=== PATIENT | male | born 1960 | race Two or more races ===

== ENCOUNTER 2016-09-04 12:15 | Emergency (ER) | payer OTHER ==
--- NOTE | 2016-09-04 12:54 | EKG ---
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
--- NOTE | 2016-09-04 13:21 | PHYS DOC ---
Past Medical History Past Medical History: Other Additional Past Medical Histor: BACK PAIN,STOMACH PROBLEM Past Surgical History: Appendectomy Additional Information: 0.5 PPD Alcohol Use: Occasionally Additional Information: DRINKS EVERY 15 DAYS, WHEN NOT TAKING MEDICATION Drug Use: None Adult General Chief Complaint Chief Complaint: CHEST PAIN HPI HPI Patient is a 56 year old male who presents with complaint of chest pain and neck pain. Patient states that he suffered a fall proximate 5 days ago at his home. Patient states that he was trying to take out trash when he slipped on a box that was on the ground. This caused him to fall into a metal machine at his home, bruising the front portion of his chest. Patient states that since his injury he has had worsening pain. Patient rates his pain currently as 8 out of 10. The patient states that he took naproxen at home with no relief of symptoms. Patient states that the pain worsens when he takes a deep breath and when he coughs. Patient states that the pain is in the center of his chest but does partially radiate towards the left side of his chest. Patient denies any shortness of breath or lightheadedness. Patient also notes that he has had worsening neck pain since his fall which she states is across both sides in the middle of his neck. Pain worsens when he tries to turn his head or extend his chin upward. Review of Systems Review of Systems Constitutional: Denies fever or chills [] Eyes: Denies change in visual acuity, redness, or eye pain [] HENT: Denies nasal congestion or sore throat [] Respiratory: Denies cough or shortness of breath [] Cardiovascular: Chest pain [] GI: Denies abdominal pain, nausea, vomiting, bloody stools or diarrhea [] : Denies dysuria or hematuria [] Musculoskeletal: Neck pain [] Integument: Denies rash or skin lesions [] Neurologic: Denies headache, focal weakness or sensory changes [] Current Medications Current Medications Current Medications Medications (Trade) Dose Ordered Sig/Kaye Start Time Stop Time Status Last Admin Dose Admin Dexamethasone Sodium Phosphate (Decadron) 12 mg 1X ONCE 09/04/16 13:30 09/04/16 13:31 DC 09/04/16 13:08 12 MG Morphine Sulfate 4 mg 1X ONCE 09/04/16 13:30 09/04/16 13:31 DC 09/04/16 13:10 4 MG Ondansetron HCl (Zofran) 4 mg 1X ONCE 09/04/16 13:30 09/04/16 13:31 DC 09/04/16 13:07 4 MG Allergies Allergies Allergies Coded Allergies Type Severity Reaction Last Updated Verified naproxen Allergy Intermediate RASH,ITCH 09/04/16 Yes Physical Exam Physical Exam Constitutional: Alert, afebrile, appears in mild to moderate discomfort. [] HENT: Normocephalic, atraumatic, bilateral external ears normal, oropharynx moist, no oral exudates, nose normal. [] Eyes: PERRLA, EOMI, conjunctiva normal, no discharge. [] Neck: Bilateral paraspinous muscle tenderness to palpation, no midline tenderness, pain with extension, supple, no stridor. [] Cardiovascular:Heart rate regular rhythm, no murmur [] Lungs & Thorax: Bilateral breath sounds clear to auscultation, mid sternal tenderness to palpation causing reproducible pain [] Abdomen: Bowel sounds normal, soft, no tenderness, no masses, no pulsatile masses. [] Skin: Warm, dry, no erythema, no rash. [] Back: No tenderness, no CVA tenderness. [] Extremities: No tenderness, no cyanosis, no clubbing, ROM intact, no edema. [] Neurologic: Alert and oriented X 3, normal motor function, normal sensory function, no focal deficits noted. [] Current Patient Data Vital Signs Vital Signs Date Time Temp Pulse Resp B/P Pulse Ox O2 Delivery O2 Flow Rate FiO2 09/04/16 13:10 18 99 Room Air 09/04/16 12:19 97.6 54 137/67 97.6 EKG EKG Interpreted by me: Heart rate 51, sinus rhythm, normal intervals, normal axis, no acute ST/T-wave abnormalities present [] Radiology/Procedures Radiology/Procedures [facility] [address] [place] [address] IMAGING REPORT Signed PATIENT: ROCCO FAITH ACCOUNT: [id number] : 1960 LOCATION: ER AGE: 56 SEX: M EXAM STATUS: REG ER ORD. PHYSICIAN: NABIL STERN MD REASON: neck pain after fall 4 days ago PROCEDURE: CERVICAL SPINE 2-3V Cervical spine radiographs History: Neck pain after fall 4 days ago. Comparison: None. Findings: AP, lateral, and open-mouth odontoid views of the cervical spine. There is straightening of the normal cervical lordosis. No acute fracture or acute malalignment is identified. No prevertebral soft tissue swelling is seen. Mild degenerative disc disease with some narrowing of the disc height is seen at C4-5, C5-6, and C6-7. Multilevel facet degeneration is seen. Impression: 1. No acute osseous abnormality identified. 2. Degeneration. DICTATED and SIGNED BY: JOSE G CARDENAS MD DATE: 09/04/161326 CC: NABIL STERN MD; UNKNOWN PCP NAME ~ [facility] [address] [place] [address] IMAGING REPORT Signed PATIENT: ROCCO FAITH ACCOUNT: [id number] : 1960 LOCATION: ER AGE: 56 SEX: M EXAM STATUS: REG ER ORD. PHYSICIAN: NABIL STERN MD REASON: chest pain after fall 4 days ago PROCEDURE: CHEST PA & LATERAL Exam: PA and lateral chest radiograph History: Chest pain and bruising after fall 4 days ago. Comparison: 04/29/2012. Findings: Cardiomediastinal silhouette is within normal limits for size. Bilateral lung perales are free of focal infiltrate. No pleural effusion is seen. Cholecystectomy clips are present. Impression: No acute cardiopulmonary process. DICTATED and SIGNED BY: JOSE G CARDENAS MD DATE: 09/04/161322 CC: NABIL STERN MD; UNKNOWN PCP NAME ~ [] Course & Med Decision Making Course & Med Decision Making Pertinent Labs and Imaging studies reviewed. (See chart for details) The patient was given morphine and Decadron in the emergency department for treatment of pain. Patient's x-rays negative for severe injury. Patient's symptoms consistent with chest contusion and cervical muscle strain. The patient will continue on hydrocodone and Medrol Dosepak for treatment. Advise follow-up in 3 days a primary doctor and return to emergency department for any worsening symptoms. Patient voiced understanding and in agreement with treatment plan. Dragon Disclaimer Dragon Disclaimer This electronic medical record was generated, in whole or in part, using a voice recognition dictation system. Departure Departure Impression: Primary Impression: Chest wall pain Additional Impression: Cervical strain Disposition: 01 HOME, SELF-CARE Condition: IMPROVED Referrals: UNKNOWN PCP NAME (PCP) Patient Instructions: Chest Wall Pain, Muscle Strain Additional Instructions: Follow-up with your primary doctor in the next 3 days. Return to the emergency department for any worsening symptoms. Scripts Methylprednisolone (Medrol)4 Mg Tab.ds.pk1 Pkg PO UD #1 PKG Prov:NABIL STERN MD 09/04/16 Hydrocodone/Apap 5-325 ([place] 5-325 Tablet)1 Each Tablet1-2 Tab PO Q4-6HRS #20 TAB Prov:NABIL STERN MD 09/04/16 Problem Qualifiers Additional Impression: Cervical strain Encounter type: initial encounter Qualified Code: S16.1XXA - Strain of muscle, fascia and tendon at neck level, initial encounter NABIL STERN MD Sep 04, 2016 13:21
--- NOTE | 2016-09-04 13:26 | RAD ---
Exam: PA and lateral chest radiograph History: Chest pain and bruising after fall 4 days ago. Comparison: 04/29/2012. Findings: Cardiomediastinal silhouette is within normal limits for size. Bilateral lung perales are free of focal infiltrate. No pleural effusion is seen. Cholecystectomy clips are present. Impression: No acute cardiopulmonary process.
[2016-09-04] MEDS ORDERED: MORPHINE SULFATE 4 MG/ML DISP.SYRIN. IV ONE (13:30)
[2016-09-04] MEDS ORDERED: ONDANSETRON PF 4 MG/2 ML VIAL. IV ONE (13:30)
[2016-09-04] MEDS ORDERED: DEXAMETHASONE SOD PHOS 4 MG/ML VIAL IV ONE (13:30)
--- NOTE | 2016-09-04 13:31 | RAD ---
Cervical spine radiographs History: Neck pain after fall 4 days ago. Comparison: None. Findings: AP, lateral, and open-mouth odontoid views of the cervical spine. There is straightening of the normal cervical lordosis. No acute fracture or acute malalignment is identified. No prevertebral soft tissue swelling is seen. Mild degenerative disc disease with some narrowing of the disc height is seen at C4-5, C5-6, and C6-7. Multilevel facet degeneration is seen. Impression: 1. No acute osseous abnormality identified. 2. Degeneration.
[2016-09-04] MEDS ORDERED: METH4TAB2 PO (13:50)
[2016-09-04] MEDS ORDERED: HYDR-971 PO (13:50)
[2016-09-04 13:53] VITALS: BP 113/68
== END 2016-09-04 14:11 | disposition home or self-care (01) ==
LOC: ER 12:15
DX: S16.1XXA Strain of muscle, fascia and tendon at neck level, initial encounter (principal); R07.89 Other chest pain; F17.200 Nicotine dependence, unspecified, uncomplicated; Z88.6 Allergy status to analgesic agent; W01.198A Fall on same level from slipping, tripping and stumbling with subsequent striking against other object, initial encounter; Y93.89 Activity, other specified; Y92.009 Unspecified place in unspecified non-institutional (private) residence as the place of occurrence of the external cause; Y99.8 Other external cause status
CPT/HCPCS: 71020; 72040; 93005; 96374; 96375; 99284; J1100; J2270; J2405

== ENCOUNTER → 2017-01-24 | Outpatient (CLI) | payer OTHER ==
[~2017-01-24] MED LIST: HYDR-971 PO; IOHEXOL 240 MG/ML 50ML VIAL. PO ONE; IOHEXOL 300 MG/ML 75 ML VIAL IV ONE; METH4TAB2 PO
--- NOTE | 2017-01-24 11:35 | RAD ---
CT abdomen with IV contrast Indication: Epigastric pain Technique: CT abdomen with 75 mL of Omnipaque 300 IV contrast and 30 mL of Omnipaque 240 P.O. contrast with multiplanar reformats. Comparison: None Findings: Heart is normal in size. No pericardial or pleural effusion. 4 mm nodule seen within right middle lobe (series 2 image 6). Otherwise, lung bases are clear. 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 No other liver lesions. Liver is normal in morphology. Spleen is within normal limits. Status post cholecystectomy. Pancreas within normal limits. Adrenal glands show no nodularity. Kidneys show no focal lesion or hydronephrosis. The stomach, visualized small bowel loops and visualized colon is within normal limits. Appendectomy changes. No abdominal adenopathy. No suspicious bony lesions. Lower lumbar spine degenerative disc disease. Stable focus of sclerosis within L5 likely bony island Impression: 1. No findings to explain patient's symptoms. No hiatal hernia. 2. Status post cholecystectomy and appendectomy. 3. 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 Attention on follow-up. 4. Right middle lobe nodule (4 mm). According to Fleischner Society recommendation if patient is low risk for lung malignancy, no further workup needed. If patient is high risk for lung malignancy, follow-up CT chest in one year recommended. PQRS Compliance Statement: One or more of the following individualized dose reduction techniques were utilized for this examination: 1. Automated exposure control 2. Adjustment of the mA and/or kV according to patient size 3. Use of iterative reconstruction technique
== END | disposition home or self-care (01) ==
LOC: CT 08:00
PROVIDERS: ATTEND Internal Medicine Gastroenterology
DX: R10.13 Epigastric pain (principal); M51.36 Other intervertebral disc degeneration, lumbar region; Z90.49 Acquired absence of other specified parts of digestive tract
CPT/HCPCS: 74160; Q9966; Q9967

== ENCOUNTER → 2017-04-17 | Outpatient (CLI) | payer OTHER ==
[~2017-04-17] MED LIST changes: -IOHEXOL 240 MG/ML 50ML VIAL. PO ONE; -IOHEXOL 300 MG/ML 75 ML VIAL IV ONE
--- NOTE | 2017-04-17 10:11 | RAD ---
Radionuclide gastric imaging study, 04/17/2017: History: Chronic epigastric pain The study was performed utilizing a solid test meal radiolabeled with 2.0 mCi of technetium 99m sulfur colloid. The patient was imaged over 1 hour. There was initially stasis of activity in the proximal stomach. The overall time to half emptying of the test meal from the patient's stomach was estimated at 76 minutes. A normal T1 half is 60 minutes +/- 30 minutes. IMPRESSION: Normal gastric emptying time
== END | disposition home or self-care (01) ==
LOC: NM 07:45
PROVIDERS: ATTEND Internal Medicine Gastroenterology
DX: R10.13 Epigastric pain (principal)
CPT/HCPCS: 78264; A9541

== ENCOUNTER 2019-09-29 11:29 | Emergency (ER) | payer MEDICARE, OTHER ==
[~2019-09-29] VITALS: Ht 170.2 cm; Wt 71.8 kg
[~2019-09-29 11:29] MED LIST changes: +CYCL10TA2 PO; +HYDR-3164 PO; -HYDR-971 PO
[2019-09-29 11:58] VITALS: BP 124/84
--- NOTE | 2019-09-29 12:24 | RAD ---
PROCEDURE: HAND LEFT 3V STUDY DATE: 09/29/2019 CLINICAL INDICATION / HISTORY: Lateral left hand pain after hitting it on rock.. TECHNIQUE: PA, lateral and oblique views of the left hand. COMPARISON: 10/28/2018 left hand x-rays. FINDINGS: No fracture or dislocation is identified. The bone density is normal. The joint spaces are maintained, and there are no erosions to suggest an inflammatory arthropathy. The soft tissues are unremarkable. IMPRESSION: No acute osseous abnormality. Electronically signed by: Umm Vasquez MD (09/29/2019 12:21 PM) [id number]
[2019-09-29] MEDS ORDERED: TETRACAINE 0.5% OPHTH SOLUTION 4ML BOTTLE. OS ONE (12:30)
[2019-09-29] MEDS ORDERED: FLUORESCEIN OPHTH TEST STRIP. OS ONE (12:30)
--- NOTE | 2019-09-29 12:36 | PHYS DOC ---
Past Medical History Past Medical History: Other Additional Past Medical Histor: BACK PAIN,STOMACH PROBLEM Past Surgical History: Appendectomy Smoking Status: Current Every Day Smoker Alcohol Use: Heavy Drug Use: None General Adult EDM: Chief Complaint: MULTIPLE COMPLAINTS HPI: HPI: Patient is a 59 year old male who presents to the emergency department with complaints of pain and blurred vision in his left eye and pain in his left hand after he was hit by 2 rocks while mowing yesterday. Patient states that a large rock struck his left eye and his left hand. He currently rates the pain a 10 out of 10 on the pain scale, he denies any alleviating factors. The patient denies any bleeding or discharge from his left eye. He states that he has had a scab on the volar surface of his left hand for a month that keeps breaking open and bleeding when he puts his hand in his pocket. He denies any fever, headache, nausea, vomiting, neck pain, ear pain, sore throat, cough, or shortness of breath. Review of Systems: Review of Systems: Constitutional: Denies fever or chills. [] Eyes: See HPI HENT: Denies nasal congestion or sore throat. [] Respiratory: Denies cough or shortness of breath. [] Cardiovascular: Denies chest pain or edema. [] GI: Denies abdominal pain, nausea, or vomiting Musculoskeletal: See HPI Integument: See HPI Neurologic: Denies headache, focal weakness or sensory changes. [] Psychiatric: Denies depression or anxiety. [] Heart Score: Risk Factors: Risk Factors: DM, Current or recent (<one month) smoker, HTN, HLP, family history of CAD, obesity. Risk Scores: Score 0 - 3: 2.5% MACE over next 6 weeks - Discharge Home Score 4 - 6: 20.3% MACE over next 6 weeks - Admit for Clinical Observation Score 7 - 10: 72.7% MACE over next 6 weeks - Early Invasive Strategies Current Medications: Current Medications Medications (Trade) Dose Ordered Sig/Kaye Start Time Stop Time Status Last Admin Dose Admin Fluorescein Sodium (Ful-Arlene) 1 strip 1X ONCE 09/29/19 12:30 09/29/19 12:31 DC 09/29/19 12:12 1 STRIP Tetracaine HCl (Tetracaine) 1 drop 1X ONCE 09/29/19 12:30 09/29/19 12:31 DC 09/29/19 12:12 1 DROP Allergies: Allergies: Allergies Coded Allergies Type Severity Reaction Last Updated Verified naproxen Allergy Intermediate RASH,ITCH 09/04/16 Yes Physical Exam: PE: Constitutional: Well developed, well nourished, no acute distress, non-toxic appearance. [] HENT: Normocephalic, atraumatic, bilateral external ears normal, nose normal. [] Eyes: PERRLA, EOMI, right eye conjunctiva normal, left eye conjunctive injected, bilateral eyelids appear normal, no discharge, no pain with palpation of the left orbit. [] Neck: Normal range of motion, no stridor. [] Cardiovascular:Heart rate regular rhythm, Lungs & Thorax: Respirations even and unlabored, no retractions, no respiratory distress Skin: Warm, dry, no erythema; scabbed abrasion noted to the volar surface of the left hand between the fourth and fifth knuckles. Extremities: Left hand: Tenderness to palpation of the distal fourth and fifth metacarpals, no crepitus, no obvious deformity, no cyanosis, no clubbing, ROM intact, no edema. [] Neurologic: Alert and oriented X 3, normal motor function, normal sensory function, no focal deficits noted. [] Psychologic: Affect normal, judgement normal, mood normal. [] Current Patient Data: Vital Signs: Vital Signs Date Time Temp Pulse Resp B/P (MAP) Pulse Ox O2 Delivery O2 Flow Rate FiO2 09/29/19 11:58 98.0 76 16 124/84 (97) 97 Room Air 98.0 EKG: EKG: [] Radiology/Procedures: Radiology/Procedures: PROCEDURE: HAND LEFT 3V PROCEDURE: HAND LEFT 3V STUDY DATE: 09/29/2019 CLINICAL INDICATION / HISTORY: Lateral left hand pain after hitting it on rock.. TECHNIQUE: PA, lateral and oblique views of the left hand. COMPARISON: 10/28/2018 left hand x-rays. FINDINGS: No fracture or dislocation is identified. The bone density is normal. The joint spaces are maintained, and there are no erosions to suggest an inflammatory arthropathy. The soft tissues are unremarkable. IMPRESSION: No acute osseous abnormality.[] Using tetracaine and fluroscein the patient's left eye was examined under Wood's lamp and an area of uptake at approximately 3:00 just lateral to the pupil was noted. Patient's ocular symptoms have stabilized while they have been evaluated in the department and are appropriate for outpatient work up. No evidence of ruptured globe, retinal detachment, acute angle closure glaucoma, or deep space infection. Plan for 24 hour ophthalmologic follow up. Course & Med Decision Making: Course & Med Decision Making Pertinent Labs and Imaging studies reviewed. (See chart for details) Patient is a 59-year-old male who presented to the emergency room with complaints of left hand pain and left eye pain after being struck with rocks yesterday while mowing. Patient also reported left eye blurry vision. Ocular exam with Melara lamp was done, a small abrasion was noted just lateral to the left pupil at 3 o'clock position, no hyphema, globe appears intact, bilateral pupils are equal round and reactive to light. Patient's eye was also evaluated by Dr. Domingo. The patient was given 1 hydrocodone 5/325 mg tablet and erythromycin eye ointment was applied to the left eye. Ashok wrap was ordered to be applied to the left hand. The patient was instructed to follow-up with Dr. Maradiaga with ophthalmology in 24 hours. Call today for an appointment. Prescriptions written for hydrocodone and erythromycin eye ointment. Patient advised to return to the ER if vision worsened or pain increase. The [employer] forensic photographer line was used during the care and treatment of this patient. D/C instructions were discussed and follow up. Pt verbalized an understanding of home care, medications, follow-up, and return to ED instructions and was in agreement with the plan of care. [] Dragon Disclaimer: Dragon Disclaimer: This electronic medical record was generated, in whole or in part, using a voice recognition dictation system. Departure Departure Impression: Primary Impression: Acute conjunctivitis, left eye Qualified Codes: H10.32 - Unspecified acute conjunctivitis, left eye Additional Impressions: Injury of conjunctiva and corneal abrasion of left eye w/o FB Qualified Codes: S05.02XA - Injury of conjunctiva and corneal abrasion without foreign body, left eye, initial encounter Contusion of left hand, initial encounter Disposition: HOME, SELF-CARE Condition: STABLE Referrals: JOSE G HUMPHRIES MD (PCP) Mela MARADIAGA MD Patient Instructions: Contusion, [id number], Eye - Corneal Abrasion, [id number] Additional Instructions: Fill the prescriptions and use them as directed. Wear the Ashok wrap and apply ice to your left hand as needed for pain. Follow-up with your primary care doctor if your hand pain persists. Follow-up with Dr. Maradiaga tomorrow for reevaluation of your eye injury. Return to the ER sooner if your symptoms worsen or fever develops. Scripts Hydrocodone Bit/Acetaminophen (HYDROCODONE-APAP 5-325 ) 1 Tab Tablet 1 TAB PO PRN Q6HRS PRN for PAIN for 3 Days, #10 TAB 0 Refills Prov: TU KEENAN PARQUETRY LAYER 09/29/19 Erythromycin Base (Erythromycin) 1 Gm Oint...g. 0.5 INCH OS QID for 5 Days, #1 TUBE 0 Refills Prov: TU KEENAN PARQUETRY LAYER 09/29/19 TU KEENAN PARQUETRY LAYER Sep 29, 2019 12:36
[2019-09-29] MEDS ORDERED: HYDROcodone/APAP 5/325MG 1 TAB TABLET PO ONE (13:00)
[2019-09-29] MEDS ORDERED: ERYTHROMYCIN 0.5% OPHTH OINTMENT 1GM TUBE. OS ONE (13:00)
[2019-09-29] MEDS ORDERED: ERYT1OIN6 OS (13:11)
[2019-09-29] MEDS ORDERED: HYDR-2761 PO (13:11)
== END 2019-09-29 13:20 | disposition home or self-care (01) ==
LOC: ER 11:29
DX: S60.222A Contusion of left hand, initial encounter (principal); S05.02XA Injury of conjunctiva and corneal abrasion without foreign body, left eye, initial encounter; H10.32 Unspecified acute conjunctivitis, left eye; F17.200 Nicotine dependence, unspecified, uncomplicated; Z88.5 Allergy status to narcotic agent; W22.8XXA Striking against or struck by other objects, initial encounter; Y93.89 Activity, other specified; Y92.89 Other specified places as the place of occurrence of the external cause; Y99.8 Other external cause status
CPT/HCPCS: 73130; 99283

== ENCOUNTER 2021-01-13 13:51 | Emergency (ER) | payer MEDICARE ==
[~2021-01-13] VITALS: Ht 175.3 cm; Wt 86.1 kg
[~2021-01-13 13:51] MED LIST changes: +ERYT1OIN6 OS; +HYDR-2761 PO
[2021-01-13] MEDS ORDERED: KETOROLAC 60 MG/2 ML VIAL. IM ONE (19:30)
--- NOTE | 2021-01-13 19:38 | RAD ---
Exam: Right RIBS with PA chest INDICATION: Fall, with rib pain TECHNIQUE: Frontal view of the chest with frontal and oblique views of the right ribs Comparisons: None FINDINGS: The cardiomediastinal silhouette and pulmonary vessels are within normal limits. The lung and pleural spaces are clear. No displaced rib fractures. IMPRESSION: 1. No acute cardiopulmonary process. 2. No displaced rib fractures. Electronically signed by: Radha Charles MD (01/13/2021 7:35 PM) [place]
[2021-01-13 19:43] VITALS: BP 134/70
[2021-01-13 19:45] LABS: BASO # 0.1 x10^3/uL (0.0-0.2); BASO % 1 % (0-3); EOS # 0.1 x10^3/uL (0.0-0.7); EOS % 1 % (0-3); LYMPH # 2.5 x10^3/uL (1.0-4.8); LYMPH % 26 % (24-48); MEAN CORPUSCULAR HEMOGLOBIN 32 pg (25-35); MEAN CORPUSCULAR HGB CONC 34 g/dL (31-37); MEAN CORPUSCULAR VOLUME 94 fL (79-100); MONO # 0.9 x10^3/uL (0.0-1.1); MONO % 9 % (0-9); NEUT # 6.2 x10^3/uL (1.8-7.7); NEUT % 63 % (31-73); PLATELET COUNT 328 x10^3/uL (140-400); RED CELL DISTRIBUTION WIDTH 14.4 % (11.5-14.5); WHITE BLOOD COUNT 9.8 x10^3/uL (4.0-11.0)
[2021-01-13] MEDS ORDERED: TRAM-48 PO (19:59)
[2021-01-13 20:00] LABS: CALCIUM 8.8 mg/dL (8.5-10.1); CREATININE 0.9 mg/dL (0.7-1.3); GFR 85.8; POTASSIUM 4.2 mmol/L (3.5-5.1)
--- NOTE | 2021-01-13 20:00 | PHYS DOC ---
Past Medical History Past Medical History: Other Additional Past Medical Histor: BACK PAIN, STOMACH PROBLEMS Past Surgical History: Appendectomy Smoking Status: Current Every Day Smoker Alcohol Use: Occasionally Drug Use: None General Adult EDM: Chief Complaint: FLANK PAIN HPI: HPI: Patient is a 60-year-old Bahraini-speaking male presents with a chief complaint of right rib pain flank pain. Prior to arrival patient states he slipped down 2 or 3 steps landing on his right side. Patient denies any other injuries. On exam patient has some tenderness to the right rib lateral and posteriorly. Patient's lungs are clear his vital signs are all stable. Patient was treated with Toradol IM. X-ray performed shows no acute fractures no pneumothorax identified. Patient advised to take Tylenol and ibuprofen alternating as needed for pain. Patient advised to take Ultram for breakthrough pain. Patient to continue cyclobenzaprine which she was previously prescribed. Review of Systems: Review of Systems: Constitutional: Denies fever or chills. [] Eyes: Denies change in visual acuity. [] HENT: Denies nasal congestion or sore throat. [] Respiratory: Denies cough or shortness of breath. [] Cardiovascular: Denies chest pain or edema. [] GI: Denies abdominal pain, nausea, vomiting, bloody stools or diarrhea. [] : Denies dysuria. [] Musculoskeletal: Denies back pain or joint pain. [] Integument: Denies rash. [] Neurologic: Denies headache, focal weakness or sensory changes. [] Endocrine: Denies polyuria or polydipsia. [] Lymphatic: Denies swollen glands. [] Psychiatric: Denies depression or anxiety. [] Heart Score: C/O Chest Pain: N/A Risk Factors: Risk Factors: DM, Current or recent (<one month) smoker, HTN, HLP, family history of CAD, obesity. Risk Scores: Score 0 - 3: 2.5% MACE over next 6 weeks - Discharge Home Score 4 - 6: 20.3% MACE over next 6 weeks - Admit for Clinical Observation Score 7 - 10: 72.7% MACE over next 6 weeks - Early Invasive Strategies Current Medications: Current Medications Medications (Trade) Dose Ordered Sig/Kaye Start Time Stop Time Status Last Admin Dose Admin Ketorolac Tromethamine (Toradol Im) 60 mg 1X ONCE 01/13/21 19:30 01/13/21 19:31 DC 8/12/21 19:46 60 MG Allergies: Allergies: Allergies Coded Allergies Type Severity Reaction Last Updated Verified naproxen Allergy Intermediate RASH,ITCH 09/04/16 Yes Physical Exam: PE: General: alert, no acute distress. Skin: warm, dry and intact, no erythema, no rash. HENT: bilateral external ears normal, oropharynx moist, nose normal. Head:: Normocephalic, atraumatic. Neck: Trachea midline. Eyes: EOMI, Normal conjunctiva, No drainage CARDIOVASCULAR: Regular rate and rhythm RESPIRATORY: No respiratory distress Back: Full range of motion. MUSCULOSKELETAL: Full range of motion of bilateral upper and lower extremities. Tenderness to palpation at the angles of the right lateral ribs and posterio rly lower ribs. No crepitus GASTROINTESTINAL: Abdomen soft without rebound or guarding. NEUROLOGICAL: Alert and noted to person, place and time. No neurological deficits observed Psychiatric: Cooperative. Normal judgment Current Patient Data: Labs: Laboratory Tests Test 01/13/21 19:33 White Blood Count 9.8 x10^3/uL (4.0-11.0) Red Blood Count 4.70 x10^6/uL (4.30-5.70) Hemoglobin 15.0 g/dL (13.0-17.5) Hematocrit 44.0 % (39.0-53.0) Mean Corpuscular Volume 94 fL (79-100) Mean Corpuscular Hemoglobin 32 pg (25-35) Mean Corpuscular Hemoglobin Concent 34 g/dL (31-37) Red Cell Distribution Width 14.4 % (11.5-14.5) Platelet Count 328 x10^3/uL (140-400) Neutrophils (%) (Auto) 63 % (31-73) Lymphocytes (%) (Auto) 26 % (24-48) Monocytes (%) (Auto) 9 % (0-9) Eosinophils (%) (Auto) 1 % (0-3) Basophils (%) (Auto) 1 % (0-3) Neutrophils # (Auto) 6.2 x10^3/uL (1.8-7.7) Lymphocytes # (Auto) 2.5 x10^3/uL (1.0-4.8) Monocytes # (Auto) 0.9 x10^3/uL (0.0-1.1) Eosinophils # (Auto) 0.1 x10^3/uL (0.0-0.7) Basophils # (Auto) 0.1 x10^3/uL (0.0-0.2) Laboratory Tests 01/13/21 19:33 Vital Signs: Vital Signs Date Time Temp Pulse Resp B/P (MAP) Pulse Ox O2 Delivery O2 Flow Rate FiO2 01/13/21 19:43 97.3 72 20 134/70 96 Room Air 97.3 EKG: EKG: [] Radiology/Procedures: Radiology/Procedures: [] Course & Med Decision Making: Course & Med Decision Making Pertinent Labs and Imaging studies reviewed. (See chart for details) [] Dragon Disclaimer: Dragon Disclaimer: This electronic medical record was generated, in whole or in part, using a voice recognition dictation system. Departure Departure Impression: Primary Impression: Fall Additional Impression: Rib pain on right side Disposition: 01 HOME / SELF CARE / HOMELESS Condition: STABLE Referrals: JOSE G HUMPHRIES MD (PCP) Patient Instructions: Rib Contusion Scripts Tramadol Hcl (ULTRAM) 50 Mg Tablet 1 TAB PO PRN Q6HRS PRN for pain MDD 4 Tablet(s) for 7 Days, #28 TAB 0 Refills Prov: ROSARIO ELIAS DO 01/13/21 ROSARIO ELIAS DO Jan 13, 2021 20:00
[2021-01-13 20:05] LABS: ALBUMIN 3.4 g/dL (3.4-5.0); TOTAL BILIRUBIN 0.2 mg/dL (0.2-1.0); TOTAL PROTEIN 6.7 g/dL (6.4-8.2)
== END 2021-01-13 20:21 | disposition home or self-care (01) ==
LOC: ER 13:51
DX: R07.81 Pleurodynia (principal); R10.9 Unspecified abdominal pain; Z88.8 Allergy status to other drugs, medicaments and biological substances; F17.200 Nicotine dependence, unspecified, uncomplicated; W10.8XXA Fall (on) (from) other stairs and steps, initial encounter; Y93.89 Activity, other specified; Y92.89 Other specified places as the place of occurrence of the external cause; Y99.8 Other external cause status
CPT/HCPCS: 36415; 71101; 80053; 85025; 96372; 99284; J1885

== ENCOUNTER 2021-01-27 09:09 | Emergency (ER) | payer MEDICARE ==
[~2021-01-27] VITALS: Ht 165.1 cm; Wt 81.1 kg
[~2021-01-27 09:09] MED LIST changes: +TRAM-48 PO
--- NOTE | 2021-01-27 09:30 | ED.ADGEN ---
Past Medical History Past Medical History: Other Additional Past Medical Histor: BACK PAIN, STOMACH PROBLEMS Past Surgical History: Appendectomy Smoking Status: Current Every Day Smoker Alcohol Use: Occasionally Drug Use: None General Adult EDM: Chief Complaint: FLANK PAIN HPI: HPI: Patient is a 60-year-old male who arrives ambulatory to the emergency department complaining of continued right-sided back and flank pain. Patient reportedly fell on January 13 down some stairs and landed on his right side. He was imaged here at this hospital and determined not to have any significant injuries. He was prescribed pain medication and has been taking it since that time. Patient states he has continued pain. Patient describes pain of his lower rib cage as well as in his low back. He further states that his pain is exacerbated by any deep breathing or coughing. He denies any new injuries. He further denies any blood in his urine. He further denies any history of fever, shortness of air or abdominal pain. He is awake, alert and nontoxic-appearing. Review of Systems: Review of Systems: Constitutional: Denies fever or chills. [] Eyes: Denies change in visual acuity. [] HENT: Denies nasal congestion or sore throat. [] Respiratory: Reports to pleuritic pain of the right side as well as pain with coughing. Denies shortness of breath. [] Cardiovascular: Denies chest pain or edema. [] GI: Reports lower abdominal pain of the right side. Denies nausea, vomiting, bloody stools or diarrhea. [] : Reports right flank pain. Denies dysuria. [] Musculoskeletal: Denies back pain or joint pain. [] Integument: Reports bruising from fall. Denies rash. [] Neurologic: Denies headache, focal weakness or sensory changes. [] Endocrine: Denies polyuria or polydipsia. [] Lymphatic: Denies swollen glands. [] Psychiatric: Denies depression or anxiety. [] Allergies: Allergies: Allergies Coded Allergies Type Severity Reaction Last Updated Verified naproxen Allergy Intermediate RASH,ITCH 09/04/16 Yes Physical Exam: PE: Constitutional: Well developed, well nourished, no acute distress, non-toxic appearance. [] HENT: Normocephalic, atraumatic, bilateral external ears normal, oropharynx moist, no oral exudates, nose normal. [] Eyes: PERRLA, EOMI, conjunctiva normal, no discharge. [] Neck: Normal range of motion, no tenderness, supple, no stridor. [] Cardiovascular:Heart rate regular rhythm, no murmur [] Lungs & Thorax: Tenderness palpation along the right costal margin in the mid axillary line. Bilateral breath sounds clear to auscultation [] Abdomen: Bowel sounds normal, soft, no tenderness, no masses, no pulsatile masses. [] Skin: Bruising inferior to the right flank and the right low back. Warm, dry, no erythema, no rash. [] Back: No tenderness, no CVA tenderness. [] Extremities: No tenderness, no cyanosis, no clubbing, ROM intact, no edema. [] Neurologic: Alert and oriented X 3, normal motor function, normal sensory function, no focal deficits noted. [] Psychologic: Affect normal, judgement normal, mood normal. [] Current Patient Data: Vital Signs: Vital Signs Date Time Temp Pulse Resp B/P (MAP) Pulse Ox O2 Delivery O2 Flow Rate FiO2 01/27/21 09:49 64 20 134/67 (89) 97 Room Air 01/27/21 09:25 99.0 99.0 EKG: EKG: [] Heart Score: C/O Chest Pain: No Risk Factors: Risk Factors: DM, Current or recent (<one month) smoker, HTN, HLP, family history of CAD, obesity. Risk Scores: Score 0 - 3: 2.5% MACE over next 6 weeks - Discharge Home Score 4 - 6: 20.3% MACE over next 6 weeks - Admit for Clinical Observation Score 7 - 10: 72.7% MACE over next 6 weeks - Early Invasive Strategies Radiology/Procedures: Radiology/Procedures: [] Impression: [facility] [address] [place], [place] [id number] IMAGING REPORT Signed PATIENT: ROBI FAITH: [id number] : 1960 LOCATION: ER AGE: 60 SEX: M EXAM STATUS: REG ER ORD. PHYSICIAN: RICKY NIETO DO REASON: trauma/right sided fall/ ladder PROCEDURE: CT CHEST ABDOMEN PELVIS WO EXAMINATION: CT chest, abdomen and pelvis without IV contrast. INDICATION:60 years, Male, right-sided fall ladder. TECHNIQUE: Axial CT images of the chest, abdomen and pelvis were obtained. Coronal and sagittal reformatted performed. COMPARISON: 10/28/2018. Exposure: One or more of the following individualized dose reduction techniques were utilized for this examination: 1. Automated exposure control 2. Adjustment of the mA and/or kV according to patient size 3. Use of iterative reconstruction technique. FINDINGS: CHEST: Visualized thyroid and esophagus are unremarkable. No lymphadenopathy in the chest by size criteria. Normal cardiac size with no pericardial effusion. Normal caliber thoracic aorta and pulmonary arteries. No coronary artery atherosclerotic calcifications. No focal consolidation, pleural effusion or pneumothorax. There is a 3 mm pulmonary nodule in the right middle lobe. Calci fied granuloma in the right lower lobe. Dependent subsegmental atelectasis in bibasilar lungs. ABDOMEN/PELVIS: Within the limitation of noncontrast exam, Liver, spleen, pancreas, adrenals and kidneys are unremarkable. No cholecystectomy. No biliary ductal dilation. No bowel obstruction or wall thickening. Appendectomy changes. No lymphadenopathy in the abdomen by size criteria. Normal caliber abdominal aorta. No pneumoperitoneum or ascites. Underdistended urinary bladder which limits evaluation. Coarse calcifications in the prostate. No suspicious pelvic masses. MUSCULOSKELETAL: Acute minimally displaced right posterior 11th rib fracture. Mild degenerative changes in the lower lumbar spine. IMPRESSION: 1. Acute minimally displaced right posterior 11th rib fracture. 2. No acute traumatic injury to the abdomen or pelvis. 3. A 3 mm pulmonary nodule in the right middle lobe. Fleischner Society guidelines for management of incidental pulmonary nodule (Radiology 2017): Single solid < 6 mm: LOW-RISK patient (minimal or absent history of smoking and other known risk factors): No routine follow-up HIGH-RISK patient (history of smoking or other known risk factors): Optional CT at 12 months Electronically signed by: Janina Paz MD (01/27/2021 10:29 AM) [facility] DICTATED and SIGNED BY: JANINA PAZ MD DATE: 01/27/21 [id number] 0 Course & Med Decision Making: Course & Med Decision Making Pertinent Labs and Imaging studies reviewed. (See chart for details) [] Deng Disclaimer: Deng Disclaimer: This electronic medical record was generated, in whole or in part, using a voice recognition dictation system. Departure Departure Impression: Primary Impression: Rib fracture Disposition: HOME / SELF CARE / HOMELESS Condition: GOOD Referrals: JOSE G HUMPHRIES MD (PCP) Patient Instructions: Rib Fracture Scripts Hydrocodone Bit/Acetaminophen (HYDROCODONE-APAP 5-325 ) 1 Tab Tablet 1 TAB PO PRN Q6HRS PRN for PAIN, #12 TAB 0 Refills Prov: AMBER HARPER APRN 01/27/21 RICKY NIETO DO Jan 27, 2021 09:30 AMBER HARPER APRN Jan 27, 2021 11:30
--- NOTE | 2021-01-27 10:32 | RAD ---
EXAMINATION: CT chest, abdomen and pelvis without IV contrast. INDICATION:60 years, Male, right-sided fall ladder. TECHNIQUE: Axial CT images of the chest, abdomen and pelvis were obtained. Coronal and sagittal refor matted performed. COMPARISON: 10/28/2018. Exposure: One or more of the following individualized dose reduction techniques were utilized for thi s examination: 1. Automated exposure control 2. Adjustment of the mA and/or kV according to patient size 3. Use of iterative reconstruction technique. FINDINGS: CHEST: Visualized thyroid and esophagus are unremarkable. No lymphadenopathy in the chest by size criteria. Normal cardiac size with no pericardial effusion. Normal caliber thoracic aorta and pulmonary arterie s. No coronary artery atherosclerotic calcifications. No focal consolidation, pleural effusion or pne umothorax. There is a 3 mm pulmonary nodule in the right middle lobe. Calcified granuloma in the righ t lower lobe. Dependent subsegmental atelectasis in bibasilar lungs. ABDOMEN/PELVIS: Within the limitation of noncontrast exam, Liver, spleen, pancreas, adrenals and kidneys are unremarkable. No cholecystectomy. No biliary ductal dilation. No bowel obstruction or wall thickening. Appendectomy changes. No lymphadenopathy in the a bdomen by size criteria. Normal caliber abdominal aorta. No pneumoperitoneum or ascites. Underdistend ed urinary bladder which limits evaluation. Coarse calcifications in the prostate. No suspicious pelv ic masses. MUSCULOSKELETAL: Acute minimally displaced right posterior 11th rib fracture. Mild degenerative changes in the lower l umbar spine. IMPRESSION: 1. Acute minimally displaced right posterior 11th rib fracture. 2. No acute traumatic injury to the abdomen or pelvis. 3. A 3 mm pulmonary nodule in the right middle lobe. Fleischner Society guidelines for management of incidental pulmonary nodule (Radiology 2017): Single solid < 6 mm: LOW-RISK patient (minimal or absent history of smoking and other known risk factors): N o routine follow-up HIGH-RISK patient (history of smoking or other known risk factors): Optional CT at 12 months Electronically signed by: Yeni Paz MD (01/27/2021 10:29 AM) [facility]
[2021-01-27] MEDS ORDERED: HYDR-2761 PO ×4 (10:46→11:29)
[2021-01-27 11:19] VITALS: BP 130/69
[2021-01-27] MEDS ORDERED: HYDR-2759 PO (11:23)
== END 2021-01-27 11:55 | disposition home or self-care (01) ==
LOC: ER 09:09
DX: S22.31XA Fracture of one rib, right side, initial encounter for closed fracture (principal); F17.200 Nicotine dependence, unspecified, uncomplicated; Z90.89 Acquired absence of other organs; Z88.6 Allergy status to analgesic agent; W18.39XA Other fall on same level, initial encounter; Y93.89 Activity, other specified; Y92.89 Other specified places as the place of occurrence of the external cause; Y99.8 Other external cause status
CPT/HCPCS: 71250; 74176; 99285

== ENCOUNTER 2021-10-17 09:06 | Emergency (ER) | payer OTHER, MEDICAID ==
[~2021-10-17] VITALS: Ht 175.3 cm; Wt 81.8 kg
[~2021-10-17 09:06] MED LIST changes: +CYCL10TA19 PO; -CYCL10TA2 PO; +HYDR-2759 PO
[2021-10-17] MEDS ORDERED: PANTOPRAZOLE IV PUSH 40 MG VIAL. IVP ONE (10:00)
[2021-10-17] MEDS ORDERED: ONDANSETRON PF 4 MG/2 ML VIAL. IVP ONE (10:00)
[2021-10-17] MEDS ORDERED: IV NORMAL SALINE 1000ML BAG 1,000 ML IV SCH (10:00)
[2021-10-17 10:23] LABS: CALCIUM 8.4 mg/dL (8.5-10.1); CREATININE 0.6 mg/dL (0.7-1.3); GFR 136.5; POTASSIUM 4.3 mmol/L (3.5-5.1)
[2021-10-17 10:25] LABS: BASO % 0 % (0-3); EOS % 0 % (0-3); HEMATOCRIT 41.8 % (39.0-53.0); HEMOGLOBIN 14.3 g/dL (13.0-17.5); LYMPH # 1.8 x10^3/uL (1.0-4.8); LYMPH % 25 % (24-48); MEAN CORPUSCULAR HEMOGLOBIN 32 pg (25-35); MEAN CORPUSCULAR HGB CONC 34 g/dL (31-37); MEAN CORPUSCULAR VOLUME 93 fL (79-100); MONO # 0.6 x10^3/uL (0.0-1.1); MONO % 9 % (0-9); NEUT # 4.8 x10^3/uL (1.8-7.7); NEUT % 66 % (31-73); PLATELET COUNT 267 x10^3/uL (140-400); RED CELL DISTRIBUTION WIDTH 14.1 % (11.5-14.5); WHITE BLOOD COUNT 7.2 x10^3/uL (4.0-11.0)
[2021-10-17 10:29] LABS: ALBUMIN 3.2 g/dL (3.4-5.0); TOTAL BILIRUBIN 0.3 mg/dL (0.2-1.0); TOTAL PROTEIN 6.4 g/dL (6.4-8.2)
[2021-10-17 10:34] LABS: AMPHETAMINE/METHAMPHETAMINE NEG (NEG); BARBITURATES NEG (NEG); BENZODIAZEPINES NEG (NEG); CANNABINOIDS NEG (NEG); COCAINE NEG (NEG); METHADONE NEG (NEG); OPIATES NEG (NEG); PHENCYCLIDINE NEG (NEG)
--- NOTE | 2021-10-17 10:39 | PHYS DOC ---
Past Medical History Past Medical History: Other Additional Past Medical Histor: BACK PAIN, STOMACH PROBLEMS Past Surgical History: Cholecystectomy, Other Additional Past Surgical Histo: Cyst removed from Loco ledbetter Smoking Status: Current Every Day Smoker Additional Information: 06/05 ppd Alcohol Use: Heavy Additional Information: drinks 3-4 beers daily Drug Use: None General Adult EDM: Chief Complaint: ABDOMINAL PAIN HPI: HPI: Patient is a 61 year old male who presents with epigastric abdominal pain that goes all the way up into his chest that is worsened over the last week. He states he has had this pain off and on for the last 3 years. He states about 3 years ago he had an EGD done that showed he has some gastritis. He does drink 4-5 beers a day. He states since this has been going on worsening for the last week. He is not taking any medications. He does not take any medications daily. He states is worse when he lays down at night. He is unable to give me a quality of the pain. Currently rating his pain an 8 out of 10. Patient states when he lays down at night he feels like he needs to vomit or like he is going to drown because the food is trying to come back up but he does not. 1 week ago he returned here from [place]. He does have an appointment with his primary care doctor on November 06. Patient has a history of gastritis, back pain, cholecystectomy, smoking. Denies chest pain, shortness of breath, vomiting, diarrhea, constipation, bloody stools or bloody vomit, headache, dizziness, fever, back pain, numbness or tingling, focal weakness, cough. Review of Systems: Review of Systems: Constitutional: Denies fever or chills. [] Eyes: Denies change in visual acuity. [] HENT: Denies nasal congestion or sore throat. [] Respiratory: Denies cough or shortness of breath. + Feels like drowning when he is laying flat [] Cardiovascular: Denies chest pain or edema. [] GI: +abdominal pain, +nausea, denies vomiting, bloody stools or diarrhea. [] : Denies dysuria. [] Musculoskeletal: Denies back pain or joint pain. [] Integument: Denies rash. [] Neurologic: Denies headache, focal weakness or sensory changes. [] Endocrine: Denies polyuria or polydipsia. [] Lymphatic: Denies swollen glands. [] Psychiatric: Denies depression or anxiety. [] Heart Score: C/O Chest Pain: No HEART Score for Chest Pain: HEART Score for Chest Pain Response (Comments) Value History Slighlty/Non-Suspicious 0 ECG Nonspecific Repolarizatio 1 Age >45 - < 65 1 Risk Factors 1 or 2 Risk Factors 1 Troponin < Normal Limit 0 Total 3 Risk Factors: Risk Factors: DM, Current or recent (<one month) smoker, HTN, HLP, family history of CAD, obesity. Risk Scores: Score 0 - 3: 2.5% MACE over next 6 weeks - Discharge Home Score 4 - 6: 20.3% MACE over next 6 weeks - Admit for Clinical Observation Score 7 - 10: 72.7% MACE over next 6 weeks - Early Invasive Strategies Current Medications: Current Medications Medications (Trade) Dose Ordered Sig/Kaye Start Time Stop Time Status Last Admin Dose Admin Ondansetron HCl (Zofran) 4 mg 1X ONCE 10/17/21 10:00 10/17/21 10:02 DC Pantoprazole Sodium (PROTONIX VIAL for IV PUSH) 40 mg 1X ONCE 10/17/21 10:00 10/17/21 10:02 DC Sodium Chloride 1,000 ml @ 1,000 mls/hr Q1H 10/17/21 10:00 10/17/21 10:59 Allergies: Allergies: Allergies Coded Allergies Type Severity Reaction Last Updated Verified naproxen Allergy Intermediate RASH,ITCH 10/17/21 Yes Physical Exam: PE: Constitutional: Well developed, well nourished, no acute distress, non-toxic appearance. [] HENT: Normocephalic, atraumatic, bilateral external ears normal, oropharynx moist, no oral exudates, nose normal. [] Eyes: PERRLA, EOMI, conjunctiva normal, no discharge. [] Neck: Normal range of motion, no tenderness, supple, no stridor. [] Cardiovascular:Heart rate regular bradycardia rhythm, no murmur [] Lungs & Thorax: Bilateral breath sounds clear to auscultation [] Abdomen: Bowel sounds normal, soft, epigastric tenderness, no masses, no pulsatile masses. [] Skin: Warm, dry, no erythema, no rash. [] Back: No tenderness, no CVA tenderness. [] Extremities: No tenderness, no cyanosis, no clubbing, ROM intact, no edema. [] Neurologic: Alert and oriented X 3, normal motor function, normal sensory f unction, no focal deficits noted. [] Psychologic: Affect normal, judgement normal, mood normal. [] Current Patient Data: Labs: Laboratory Tests Test 10/17/21 09:43 Sodium Level 140 mmol/L (136-145) Potassium Level 4.3 mmol/L (3.5-5.1) Chloride Level 106 mmol/L (98-107) Carbon Dioxide Level 25 mmol/L (21-32) Anion Gap 9 (6-14) Blood Urea Nitrogen 11 mg/dL (8-26) Creatinine 0.6 mg/dL (0.7-1.3) L Estimated GFR (Cockcroft-Gault) 136.5 BUN/Creatinine Ratio 18 (6-20) Glucose Level 103 mg/dL (70-99) H Calcium Level 8.4 mg/dL (8.5-10.1) L Total Bilirubin 0.3 mg/dL (0.2-1.0) Aspartate Amino Transferase (AST) 12 U/L (15-37) L Alanine Aminotransferase (ALT) 19 U/L (16-63) Alkaline Phosphatase 67 U/L (46-116) Troponin I High Sensitivity 5 ng/L (4-75) Total Protein 6.4 g/dL (6.4-8.2) Albumin 3.2 g/dL (3.4-5.0) L Albumin/Globulin Ratio 1.0 (1.0-1.7) Lipase 69 U/L (73-393) L Laboratory Tests 10/17/21 09:43 Vital Signs: Vital Signs Date Time Temp Pulse Resp B/P (MAP) Pulse Ox O2 Delivery O2 Flow Rate FiO2 10/17/21 09:50 98.1 48 24 127/60 (82) 98 Room Air 98.1 EKG: EK and read by Dr. Hall is a sinus bradycardia at 48 with some left axis deviation but no STEMI. Radiology/Procedures: Radiology/Procedures: [] Impression: [facility] [address] [place] [id number] IMAGING REPORT Signed PATIENT: KATELINBROOKSDaleNOEUNT: [id number] : 1960 LOCATION: ER AGE: 61 SEX: M EXAM STATUS: REG ER ORD. PHYSICIAN: PJ TORO APRN REASON: epigastric and abd pain, bradycardia PROCEDURE: PORTABLE CHEST 1V INDICATION: Reason: epigastric and abd pain, bradycardia / Spl. Instructions: / History: COMPARISON: January 2021 FINDINGS: Frontal view of chest obtained. Cardiomediastinal silhouette is mildly prominent in size and similar to prior. Degenerative changes the spine. Mild interstitial prominence bilaterally IMPRESSION: * Mild interstitial prominence bilaterally which could be from mild pulmonary vascular congestion or mild interstitial infiltrate. Electronically signed by: Ward Silverman MD (10/17/2021 10:46 AM) [id number] DICTATED and SIGNED BY: WARD SILVERMAN MD DATE: 10/17/21 1044 Course & Med Decision Making: Course & Med Decision Making Pertinent Labs and Imaging studies reviewed. (See chart for details) See HPI. Alert and oriented x4. Ambulatory steady gait. Skin pink warm and dry. No extremity edema. Patient is Slovak-speaking only and hr assistant phone is used. Abdomen is soft but some tenderness to the epigastric area. Lungs are clear to auscultation in all lobes. Speaks in full clear sentences. Vital signs are within normal limits except he is bradycardic in 48 into the 50s. No history that he knows of this heart problem. Blood work unremarkable. CT hard to read sent over by radiology shows no acute intra-abdominal pathology. Chest x-ray shows some pulmonary congestion. Vital signs are stable. He has no shortness of breath. Patient will be given Pepcid and Carafate. Patient follow-up with his primary care physician on November 06. [] Deng Disclaimer: Deng Disclaimer: This electronic medical record was generated, in whole or in part, using a voice recognition dictation system. Departure Departure Impression: Primary Impression: Gastritis Qualified Codes: K29.50 - Unspecified chronic gastritis without bleeding Disposition: HOME / SELF CARE / HOMELESS Condition: STABLE Referrals: JOSE G HUMPHRIES MD (PCP) QIANA LICEA MD Patient Instructions: Diet for Gastroesophageal Reflux Disease, Adult, Gastritis, Adult, Gastroesophageal Reflux Disease, Adult Additional Instructions: Follow-up with your primary care doctor as scheduled. I have also referred you to a gastrointestinal physician. Stop drinking alcohol. Take medication as prescribed and with food. Scripts Sucralfate (CARAFATE) 1 Gm/10 Ml Oral.susp 10 ML PO QID for 30 Days, #120 L 0 Refills before food Prov: PJ TORO APRN 10/17/21 Famotidine (PEPCID) 20 Mg Tablet 20 MG PO BID, #40 TAB Prov: PJ TORO APRN 10/17/21 PJ TORO APRN October 17, 2021 10:39
--- NOTE | 2021-10-17 10:49 | RAD ---
INDICATION: Reason: epigastric and abd pain, bradycardia / Spl. Instructions: / History: COMPARISON: January 2021 FINDINGS: Frontal view of chest obtained. Cardiomediastinal silhouette is mildly prominent in size and similar to prior. Degenerative changes the spine. Mild interstitial prominence bilaterally IMPRESSION: * Mild interstitial prominence bilaterally which could be from mild pulmonary vascular congestion or mild interstitial infiltrate. Electronically signed by: Dave Alexander MD (10/17/2021 10:46 AM) [id number]
[2021-10-17 11:13] LABS: BACTERIA,URINE 0 /HPF (0-FEW); RBC,URINE OCC /HPF (0-2); WBC,URINE OCC /HPF (0-4)
[2021-10-17 11:59] LABS: INFLUENZA A PATIENT NEGATIVE (NEGATIVE); INFLUENZA B PATIENT NEGATIVE (NEGATIVE)
[2021-10-17] MEDS ORDERED: SUCR1ORA5 PO (14:12)
[2021-10-17] MEDS ORDERED: FAMO-63 PO (14:12)
[2021-10-17 14:14] VITALS: BP 100/59
--- NOTE | 2021-10-18 07:46 | EKG ---
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
--- NOTE | 2021-10-18 07:46 | RAD ---
Exam Date: 10/17/2021 10:[address] ABDOMEN+PELVIS WO Indication: Reason: pain, nausea, hx alcoholism / Spl. Instructions: / History: . TECHNIQUE: CT examination of the abdomen and pelvis was performed without oral or intravenous contra st. One or more of the following dose reduction techniques were utilized: *Automated exposure control (AEC) *Adjustment of mA and/or kV according to patient size *Use of iterative reconstruction technique *CT scan done according to ALARA, or ALARA/IMAGE GENTLY FINDINGS: The visualized lung bases demonstrate mild dependent atelectasis. Status post cholecystectomy. The liver, spleen, pancreas, and adrenal glands are normal. The kidneys are normal bilaterally. No hydronephrosis or hydroureter is seen. No urinary tract calc amanda are seen. Urinary bladder is normal in appearance. There is no bowel obstruction or inflammation. Presumed appendectomy changes noted in the right lowe r quadrant. Mild atherosclerotic calcifications are seen. No lymphadenopathy or ascites is seen. Degenerative changes are seen in the spine. IMPRESSION: No acute intra-abdominal pathology. Normal appearance of the kidneys and bladder. No hydronephrosis or hydroureter. No urinary tract ca lculi. Electronically signed by: Roel Noble MD (10/17/2021 11:46 AM) [id number]
== END 2021-10-17 14:50 | disposition home or self-care (01) ==
LOC: ER 09:06
DX: K29.50 Unspecified chronic gastritis without bleeding (principal); F17.200 Nicotine dependence, unspecified, uncomplicated; F10.20 Alcohol dependence, uncomplicated; Z20.822 Contact with and (suspected) exposure to COVID-19; Z90.49 Acquired absence of other specified parts of digestive tract; Z88.8 Allergy status to other drugs, medicaments and biological substances; Y90.0 Blood alcohol level of less than 20 mg/100 ml
CPT/HCPCS: 36415; 71045; 74176; 80053; 80307; 81001; 83690; 83735; 83880; 84484; 85025; 87428; 93005; 96361; 96374; 96375; 99285; C9113; J2405; J7030